=== PATIENT | female | born 1975 | race Caucasian/White ===

== ENCOUNTER 2017-05-06 14:08 | Emergency (ER) ==
[2017-05-06 14:16] VITALS: BP 106/71; TEMP 99.6; BMI 27.0
[2017-05-06 15:26] LABS: BASOPHILS # (AUTO) 0.1 K/uL (0-0.2); BASOPHILS % (AUTO) 1.1 % (0.0-3.0); EOSINOPHILS # (AUTO) 1.1 K/ul (0.0-0.7); EOSINOPHILS % (AUTO) 15.2 % (0.0-7.0); HEMOGLOBIN 8.6 g/dl (12.0-16.0); IMMATURE GRANULOCYTE % (AUTO) 0.6 % (0.0-5.0); LYMPHOCYTES # (AUTO) 2.4 K/uL (0.60-3.4); LYMPHOCYTES % (AUTO) 34.2 (10.0-50.0); MEAN CORPUSCULAR HEMOGLOBIN 20.1 pg (27.0-31.0); MEAN CORPUSCULAR HGB CONC 28.7 (31.8-35.4); MEAN CORPUSCULAR VOLUME 70.1 fl (81.0-99.0); MONOCYTES # (AUTO) 0.5 K/uL (0.4-2.0); MONOCYTES % (AUTO) 7.5 (0-10); NEUTROPHILS # (AUTO) 2.9 K/ul (2.0-6.9); NEUTROPHILS % (AUTO) 41.4; PLATELET COUNT 246 10^3/uL (140-440); RED BLOOD COUNT 4.28 10^6/ul (4.20-5.40); WHITE BLOOD COUNT 7.02 K/ul (4.6-10.2)
[2017-05-06 15:38] LABS: ALBUMIN 3.4 g/dL (3.4-5.0); ALBUMIN/GLOBULIN RATIO 1.03; ANION GAP 12.6; BILIRUBIN,TOTAL 0.26 mg/dL (0.00-1.20); BUN/CREATININE RATIO 14.66; CALCIUM 8.7 mg/dL (8.2-10.2); CREATININE 0.75 mg/dL (0.60-1.30); POTASSIUM 4.6 mmol/L (3.5-5.10); TOTAL PROTEIN 6.7 g/dL (6.4-8.2)
--- NOTE | 2017-05-06 15:38 | CT ---
EXAM: CT LUMBAR SPINE HISTORY: Back pain TECHNIQUE: CT lumbar spine without contrast. 3-mm axial sections. Coronal and sagittal reformatio ns. COMPARISON: None FINDINGS: There is mild curvature of the spine convex to the left which may be related to patient positioning versus scoliosis. No loss of vertebral body height or spondylolisthesis. No fracture. Minimal fac et arthropathy lumbosacral junction. Sacroiliac joints are within normal limits. At L4/L5, there ap pears to be a central disc protrusion or bulge leading to mild central canal stenosis. At L2/L3, th ere may be a left paracentral disc protrusion or bulge leading to regional central canal stenosis an d a possible degree of left neural foraminal narrowing. Paraspinal soft tissues are within normal l imits. Postop changes of the stomach are apparent. There is either a small hiatal hernia or thicke frieda of the distal esophageal wall. The former is favored. IMPRESSION: 1. Degenerative changes of the spine most apparent at L2/L3 and L4/L5. Mild scoliosis. Consider co rrelation with MRI if indicated clinically. 2. Postop changes of the stomach with probable small hiatal hernia.
[2017-05-06] MEDS ORDERED: DECADRON 4 MG/ML SDV IM STA (15:44)
[2017-05-06 15:45] LABS: ANISOCYTOSIS NOT PRESENT (NOT PRESENT)
[2017-05-06 15:46] LABS: HYPOCHROMASIA 1+ (NOT PRESENT); MICROCYTOSIS 1+ (NOT PRESENT)
[2017-05-06 15:48] LABS: SERUM PREGNANCY INTERNAL QC INTERNAL QC VALID
[2017-05-06 16:10] LABS: BILIRUBIN,URINE Negative (NEGATIVE); KETONES,URINE Negative (NEGATIVE); LEUKOCYTE ESTERASE ,URINE Negative (NEGATIVE); NITRITE,URINE Negative (NEGATIVE); PROTEIN,URINE Negative (NEGATIVE); URINE, BLOOD Negative (NEGATIVE)
[2017-05-06 16:16] LABS: ADD URINE MICROSCOPIC NO; URINE PREGNANCY INTERNAL QC INTERNAL QC VALID
--- NOTE | 2017-05-06 16:21 | ED.PDOC ---
General ED Provider: Dr. ABHIJIT ALFORD Chief Complaint: Non-specific Complaint Stated Complaint: BACK PAIN Time Seen by Physician: 14:10 (SEE N WITH BINH AND PA STUDENT AT ALL TIMES , DENIED TRAUMA) Mode of Arrival: Walk-In Information Source: Patient Exam Limitations: No limitations Nursing and Triage Documentation Reviewed and Agree: Yes (NO VACCINATION GI DISEASE OR FLU SYNDROME PAST 3 WEEKS ) Musculoskeletal Complaint Exam - Back Pain Complaint/Exam Mechanism of Injury: Reports: No known trauma Onset/Duration: 1 DAY STATED SHE CAN NOT BEAR WEIGHT SHE HAS BACK PAIN RX BOTH LEGS Symptoms Are: Still present Timing: Constant (1 1 DAY) Episodes Lasting: Hours (1 DAY) Initial Severity: Mild Current Severity: Mild Character: Reports: Dull Aggravating: Reports: Movements, Lifting, Bending, Walking Alleviating: Reports: Rest, Position Associated Signs and Symptoms: Denies: Swelling, Redness, Bruising, Fever, Weakness, Numbness, Tingling, Abdominal pain, Flank pain, Bladder incontinence, Bowel incontinence, Weight loss, Pain with weight bearing TAD Risk Factors: Reports: None AAA Risk Factors: Reports: None Cauda Equina Risk Factors: Reports: None Epidural Abcess Risk Factors: Reports: None Related Surgical History: Reports: None Focal Tenderness: No Paraspinal Muscle Tenderness: No Paraspinal Muscle Spasm: No Scoliosis: No Lordosis: No Kyphosis: No SLR Test: Right Negative, Left Negative Hip Motion Testing Pain: Right Negative, Left Negative Focal Weakness: Present: None Differential Diagnoses: Fracture, Strain, Sprain Review of Systems - Review Of Systems Constitutional: Reports: No symptoms Eyes: Reports: No symptoms Ears, Nose, Mouth, Throat: Reports: No symptoms Respiratory: Reports: No symptoms Cardiac: Reports: No symptoms GI: Reports: No symptoms : Reports: No symptoms Musculoskeletal: Reports: Back pain Skin: Reports: No symptoms Neurological: Reports: No symptoms Endocrine: Reports: No symptoms Hematologic/Lymphatic: Reports: No symptoms All Other Systems: Reviewed and Negative Past Medical History - Past Medical History Previously Healthy: Yes Endocrine: Reports: None Cardiovascular: Reports: None Respiratory: Reports: None Hematological: Reports: None Gastrointestinal: Reports: None Genitourinary: Reports: None Neuro/Psych: Reports: None Musculoskeletal: Reports: None Cancer: Reports: None Last Menstrual Period: 04/13 - Surgical History General Surgical History: Reports: None - Family History Family History: Reports: None - Social History Smoking Status: Current every day smoker Hx Substance Use: No Alcohol Screening: None - Immunizations Tetanus Shot up to Date: Yes Physical Exam - Physical Exam Appearance: Well-appearing, No pain distress, Well-nourished Eyes: CHENG, EOMI, Conjunctiva clear ENT: Ears normal, Nose normal, Oropharynx normal Respiratory: Airway patent, Breath sounds clear, Breath sounds equal, Respirations nonlabored Cardiovascular: RRR, Pulses normal, No rub, No murmur GI/: Soft, Nontender, No masses, Bowel sounds normal, No Organomegaly Musculoskeletal: Normal strength, ROM intact, No edema, No calf tenderness Skin: Warm, Dry, Normal color Neurological: Sensation intact, Motor intact, Reflexes intact, Cranial nerves intact, Alert, Oriented Psychiatric: Affect appropriate, Mood appropriate Interpretation - Radiology Interpretation Radiology Interpretation By: Radiologist Radiology Results: No acute changes Critical Care Note - Critical Care Note Total Time (mins): 0 Course - Course Hematology/Chemistry: 05/06/17 15:15 05/06/17 15:15 Orders, Labs, Meds: Lab Review 05/06/17 05/06/17 15:15 15:55 WBC 7.02 RBC 4.28 Hgb 8.6 L Hct 30.0 L MCV 70.1 L MCH 20.1 L MCHC 28.7 L RDW Coeff of Darron 19.9 H Plt Count 246 Immature Gran % (Auto) 0.6 Neut % (Auto) 41.4 Lymph % (Auto) 34.2 [place] % (Auto) 7.5 Eos % (Auto) 15.2 H Baso % (Auto) 1.1 Immature Gran # (Auto) 0.0 Neut # 2.9 Lymph # 2.4 [place] # 0.5 Eos # 1.1 H Baso # 0.1 Hypochromasia 1+ Anisocytosis Not present Microcytosis 1+ Sodium 143 Potassium 4.6 Chloride 109 H Carbon Dioxide 26 Anion Gap 12.6 BUN 11 Creatinine 0.75 Estimated GFR (MDRD) 86.00 BUN/Creatinine Ratio 14.66 Glucose 95 Calcium 8.7 Total Bilirubin 0.26 AST 18 ALT 11 L Alkaline Phosphatase 80 Total Creatine Kinase 98 Total Protein 6.7 Albumin 3.4 Globulin 3.3 Albumin/Globulin Ratio 1.03 Serum , Qual Negative Urine Color Yellow Urine Clarity Clear Urine pH 7.0 Ur Specific [place] 1.015 Urine Protein Negative Urine Glucose (UA) Negative Urine Ketones Negative Urine Blood Negative Urine Nitrite Negative Urine Bilirubin Negative Urine Urobilinogen 0.2 Ur Leukocyte Esterase Negative Urine Test Negative Orders Category Date Time Status CBC W/ AUTO DIFF Stat LAB 05/06/17 15:15 Received CK [CREATINE KINASE] Stat LAB 05/06/17 15:44 Ordered COMPREHENSIVE METABOLIC PANEL Stat LAB 05/06/17 15:15 Received RBC MORPHOLOGY Stat LAB 05/06/17 15:15 Completed SERUM Stat LAB 05/06/17 15:15 Received URINALYSIS C & S IF INDICATED Stat LAB 05/06/17 14:38 Uncollected URINE Stat LAB 05/06/17 14:[address] LUMBAR SPINE W/O CONTRAST Stat RADS 05/06/17 14:39 Completed Vital Signs: Temp Pulse Resp BP Pulse Ox 05/06/17 14:10 99.6 F 82 20 106/71 99 Departure - Departure Time of Disposition: 16:22 (NURSING STAFF AT BEDSIDE. PT MOVING ALL EXTREMITY. PT MOVING AND WALK SHORT DISTANCES. NORMAL LOWER BILATERAL REFLEXES. NORMAL NEUROLOGICAL EXAM. PT ALERT, ORIENTED X3. discussed about transfer to [facility] to neurology consult. Pt refused and understood risks. PA student mela dora and nursing staff was present at the time. ) Disposition: AMA Discharge Problem: Weakness of both lower extremities Back pain Qualifiers: Chronicity: unspecified Instructions: Acute Low Back Pain (ED) Condition: Good Pt referred to PMD for follow-up: Yes Additional Instructions: Please call your Family Physician as soon as possible to schedule a follow-up appointment. Allergies/Adverse Reactions: Allergies erythromycin base Adverse Reaction (Verified 05/06/17 14:20)
== END 2017-05-06 16:27 | disposition left against medical advice (07) ==
LOC: ED 14:08
DX: R53.1 Weakness (principal); M54.5 Low back pain; F17.210 Nicotine dependence, cigarettes, uncomplicated
CPT/HCPCS: 36415; 80053; 81001; 81025; 82550; 84703; 85008; 85025; 99283

== ENCOUNTER 2017-05-10 12:04 | Outpatient (CLI) | END 2017-05-10 12:05 | disposition home or self-care (01) | LOC: AMBL 12:04 | PROVIDERS: ATTEND Internal Medicine | DX: S79.922A Unspecified injury of left thigh, initial encounter (principal); S99.912A Unspecified injury of left ankle, initial encounter; S09.90XA Unspecified injury of head, initial encounter; M54.9 Dorsalgia, unspecified; M54.2 Cervicalgia; R47.81 Slurred speech; W10.9XXA Fall (on) (from) unspecified stairs and steps, initial encounter ==